=== PATIENT | male | born 1990 | race Two or more races ===

== ENCOUNTER 2021-05-31 10:38 | Emergency (ER) | payer SELFPAY ==
[~2021-05-31] VITALS: Ht 175.3 cm; Wt 79.4 kg
[2021-05-31 11:03] VITALS: BP 127/69
[2021-05-31] MEDS ORDERED: METH4TAB3 PO (11:37)
== END 2021-05-31 11:43 | disposition home or self-care (01) ==
LOC: ER 10:47
DX: J02.9 Acute pharyngitis, unspecified (principal); J35.1 Hypertrophy of tonsils; Z60.2 Problems related to living alone; Z79.899 Other long term (current) drug therapy

== ENCOUNTER 2021-06-03 10:11 | Emergency (ER) | payer SELFPAY ==
[~2021-06-03] VITALS: Ht 175.3 cm; Wt 79.4 kg
[~2021-06-03 10:11] MED LIST: METH4TAB3 PO
[2021-06-03 10:38] VITALS: BP 146/91
--- NOTE | 2021-06-03 11:00 | NUR ---
AT BEDSIDE FOR EVAL.
[2021-06-03] MEDS ORDERED: CEFTRIAXONE 1 G VIAL ONE (12:18)
[2021-06-03] MEDS ORDERED: LIDOCAINE /MPF 1% VIAL 5 ML VIAL ONE (12:19)
[2021-06-03 12:27] LABS: MONOTEST NEGATIVE (NEGATIVE)
[2021-06-03] MEDS ORDERED: AMOX-430 PO (12:29)
[2021-06-03] MEDS ORDERED: CEFTRIAXONE 1 G VIAL IM ONE (12:30)
--- NOTE | 2021-06-03 12:35 | NUR ---
Patient discharged to home in stable condition. Written and verbal after care instructions given. Patient verbalizes understanding of instruction.
== END 2021-06-03 12:36 | disposition home or self-care (01) ==
LOC: ER 10:13
DX: J03.90 Acute tonsillitis, unspecified (principal); Z60.2 Problems related to living alone; Z79.899 Other long term (current) drug therapy
CPT/HCPCS: 36415; 86308; 96372; 99283; J0696; J3490

== ENCOUNTER 2022-03-02 17:08 | Emergency (ER) | payer SELFPAY ==
[~2022-03-02] VITALS: Ht 175.3 cm; Wt 81.6 kg
[~2022-03-02 17:08] MED LIST changes: +AMOX-430 PO
--- NOTE | 2022-03-02 17:20 | NUR ---
BIBS C/O SORETHROAT, COUGH, FEVER, CHILLS X 2 DAYS. AMBULATORY, PLACED ON BED, BREATHING EVEN AND UNLABORED.
[2022-03-02] MEDS ORDERED: KETOROLAC TROMETHAMINE INJ 60 MG/2 ML VIAL IM ONE (18:00)
[2022-03-02] MEDS ORDERED: DEXAMETHASONE SOD PHOSPHATE 10 MG/ML VIAL IM ONE (18:00)
[2022-03-02] MEDS ORDERED: LIDOCAINE VISCOUS 2% UD 15 ML UDC MM ONE (18:00)
[2022-03-02] MEDS ORDERED: DEXAMETHASONE SOD PHOSPHATE 10 MG/ML VIAL ONE (18:06)
[2022-03-02] MEDS ORDERED: LIDOCAINE VISCOUS 2% UD 15 ML UDC ONE (18:06)
[2022-03-02] MEDS ORDERED: KETOROLAC TROMETHAMINE INJ 30 MG/ML VIAL ONE (18:07)
--- NOTE | 2022-03-02 18:35 | NUR ---
SWAB FOR RAPID STREP AND INFLUENZA SENT TO LAB
[2022-03-02] MEDS ORDERED: PENICILLIN G BENZATHINE 2.4 MMU/4 ML ML IM ONE ×2 (20:19→20:30)
--- NOTE | 2022-03-02 20:25 | NUR ---
Patient discharged to home in stable condition. Written and verbal after care instructions given. Patient verbalizes understanding of instruction.
[2022-03-02 20:26] VITALS: BP 110/72
== END 2022-03-02 20:25 | disposition home or self-care (01) ==
LOC: ER 17:20
DX: J02.9 Acute pharyngitis, unspecified (principal); Z60.2 Problems related to living alone; Z79.899 Other long term (current) drug therapy
CPT/HCPCS: 99284; 96372 ×2; 87804; 87081; 87880; J0558; J1100; J1885; 86403-TC